=== PATIENT | female | born 1950 | race Caucasian/White ===

== ENCOUNTER 2016-11-20 18:01 | Emergency (ER) | payer OTHER ==
[2016-11-20 21:33] LABS: MANUAL DIFF NEEDED? NO
--- NOTE | 2016-11-20 21:53 | PROVIDER DOCUMENTATION ---
HPI-Musculoskeletal Pain/Inj - GENERAL Chief Complaint: Edema Stated Complaint: BILAT. FEET PAIN/BURNING Time Seen by Provider: 11/20/16 20:15 Source: patient - HX OF PRESENT ILLNESS-MUSKULOSKELTAL Nature of Presenting Problem: This pt presents today c complaints of bilateral feet swelling and pain. She reports that she spoke to her PCP and he advised her to elevate her legs. She states that she did this and it "got a little better" but she decided to come in because it had not completely resolved. She reports that she takes neurontin for her neuropathic pain but it has not improved her symptoms. She denies any any calf pain, erythema or warmth. No other issues or complaints. Quality of Pain: reports: burning Severity in ED: mild Onset/Duration: 3 days ago Timing: still present Modifying Factors: improves with: other (see hpi) Any recent injury?: No Similar Symptoms Previously?: Yes Recently seen or treated by another doctor?: Yes Review of Systems - Adult - REVIEW OF SYSTEMS - ADULT Constitutional: reports: no symptoms reported. denies: chills, fever Eyes: reports: no symptoms reported. denies: discharge, dry eyes Ears, Nose, Mouth & Throat: reports: no symptoms reported. denies: ear discharge, ear pain Cardiovascular: reports: no symptoms reported. denies: chest pain, edema Respiratory: reports: no symptoms reported. denies: chronic cough, cough Gastrointestinal: reports: no symptoms reported. denies: abdominal pain, hematemesis Genitourinary: reports: no symptoms reported. denies: dysuria, discharge Musculoskeletal: reports: see HPI. denies: bone pain, back pain Integumentary: reports: see HPI. denies: hives, hair loss Neurological: reports: no symptoms reported. denies: ataxia, dizziness/vertigo Psychiatric: reports: no symptoms reported. denies: anxiety, anti-depressant use Endocrine: reports: no symptoms reported Hematologic/Lymphatic: reports: no symptoms reported Allergic/Immunologic: reports: no symptoms reported All Other Systems: Reviewed and Negative Past History - Adult - PAST MEDICAL HISTORY-ADULT Review of Records: reports: Old Records Reviewed, Nursing Assessment Review, Medications Reviewed, Social history reviewed & non-contributory. Major Childhood Illnesses: reports: denies history Cardiovascular: reports: [place] Respiratory: reports: sleep apnea Gastrointestinal: reports: denies history Obstetrical/Gynecological: reports: denies history Genitourinary: reports: incontinence Musculoskeletal: reports: arthritis (OA), fibromyalgia Neurological: Psychiatric: reports: bipolar Endocrine/Immune: reports: Diabetes, thyroid disorder Other Conditions: reports: denies history - PRIOR SURGERIES/PROCEDURES Surgical/Procedure History: reports: other (septoplasty. cyst removal. hemorrhoidectomy; pelvic floor repair) - IMMUNIZATION STATUS Childhood Immunizations: UTD Flu Vaccine: See Nurse Assessment - FAMILY HISTORY Family History: reviewed, not pertinent Physical Exam-Injury Related - Physical Exam-Injury Related Initial Vital Signs Reviewed: Yes General Appearance: appears well, alert, no apparent distress Eyes: PERRL/EOMI, pink conjunctivae Head, Ears, Nose, Mouth & Throat: normocephalic/atraumatic, normal ENT inspection, TMs normal, pharynx normal Neck: non-tender, full range of motion, supple, normal inspection Respiratory: chest non-tender, lungs clear, normal breath sounds, no pleuratic chest pain, no respiratory distress, no accessory muscle use Cardiovascular: normal peripheral pulses, regular rate, rhythm, no edema, no gallop, no JVD, no murmur Peripheral Pulses: dorsalis-pedis (R): 2+, dorsalis-pedis (L): 2+ Abdominal Exam: normal bowel sounds, non tender, soft, no organomegaly, no pulsatile mass Lymphatic: no adenopathy Back Exam: normal inspection, no CVA tenderness, no vertebral tenderness Extremity: normal gait, no pedal edema, no calf tenderness, normal capillary refill, pelvis stable, pedal edema, swelling. 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04 Sodium 138 Potassium 4.1 Chloride 100 Carbon Dioxide 24 L Anion Gap 14 BUN 11 Creatinine 0.8 Estimated GFR/1.73 m2 > 60 BUN/Creatinine Ratio 14 Glucose 100 Calculated Osmolality 275 Calcium 9.2 Magnesium 2.0 Total Bilirubin 0.91 AST 35 H ALT 23 Alkaline Phosphatase 90 Total Protein 6.9 Albumin 4.3 Globulin 2.6 Albumin/Globulin Ratio 1.7 Orders Category Date Time Status CBC WITH ELECTRONIC DIFF [HEME] Stat Lab 11/20/16 21:00 Completed COMPREHENSIVE METABOLIC PANEL [CHEM] Stat Lab 11/20/16 21:00 Completed MAGNESIUM [CHEM] Stat Lab 11/20/16 21:00 Completed Furosemide [Lasix] Med 11/20/16 22:23 Once 40 mg PO NOW ONE Vital Signs Temp Pulse Resp BP Pulse Ox 11/20/16 22:05 97 F L 76 20 114/52 99 11/20/16 18:07 98.0 F 91 H 20 147/69 100 clonazepam [From Klonopin] Allergy (Severe, Verified 11/20/16 21:36) SHORTNESS OF BREATH choing, hands swelling ketorolac tromethamine * [From Toradol] Allergy (Severe, Verified 11/20/16 21:36 ) SHORTNESS OF BREATH choking hands swelling amoxicillin Allergy (Intermediate, Verified 11/20/16 21:36) SWELLING "my hands swelled up" aripiprazole [From Abilify] Allergy (Verified 11/20/16 21:36) Unknown RX: Levothyroxine Sodium [Synthroid] 0.05 mg PO DAILY 09/19/12 RX: Lamotrigine [Lamictal] 50 mg PO TID 12/11/13 RX: Gabapentin [Neurontin] 300 mg PO BID 02/09/14 RX: Warfarin [Coumadin] 8 mg PO QHS 02/09/14 RX: Cetirizine [Zyrtec] 10 mg PO DAILY #30 tablet 02/16/15 RX: Albuterol Sulfate [Proair Hfa] 8.5 gm IH Q4HR 02/18/15 RX: Atenolol 25 mg PO BID 02/18/15 RX: Eplerenone 25 mg PO DAILY 02/18/15 RX: Omeprazole [Prilosec] 40 mg PO DAILY 02/18/15 Fluticasone 50 Mcg Nasal [place] [Flonase] 1 spray PAPO DAILY 10/02/16 RX: ATORVAstatin [Lipitor] 20 mg PO QHS #90 tablet 10/02/16 RX: Acetaminophen with Codeine [Tylenol with Codeine #3] 1 each PO Q8H PRN PRN # 30 tablet 10/02/16 Laboratory 11/20/16 11/20/16 21:00 21:00 WBC 8.16 RBC 4.54 Hgb 13.5 Hct 40.5 MCV 89.2 MCH 29.7 MCHC 33.3 RDW Std Deviation 13.0 Plt Count 248 MPV 11.4 H Immature Gran % (Auto) 0.0 Neut % (Auto) 59.4 Lymph % (Auto) 24.5 [place] % (Auto) 12.5 H Eos % (Auto) 3.1 Baso % (Auto) 0.5 Immature Gran # (Auto) 0.00 Neut # (Auto) 4.85 Lymph # (Auto) 2.00 [place] # (Auto) 1.02 H Eos # (Auto) 0.25 Baso # (Auto) 0.04 Sodium 138 Potassium 4.1 Chloride 100 Carbon Dioxide 24 L Anion Gap 14 BUN 11 Creatinine 0.8 Estimated GFR/1.73 m2 > 60 BUN/Creatinine Ratio 14 Glucose 100 Calculated Osmolality 275 Calcium 9.2 Magnesium 2.0 Total Bilirubin 0.91 AST 35 H ALT 23 Alkaline Phosphatase 90 Total Protein 6.9 Albumin 4.3 Globulin 2.6 Albumin/Globulin Ratio 1.7 Pt feeling well. Will d/c home to f/u c her PCP. Departure - Departure Time of Disposition Order: 22:23 DIAGNOSIS: Lower extremity edema Qualifiers: Laterality: bilateral Qualified Code(s): R60.0 - Localized edema Disposition: HOME 01 Certified Medical Emergency: Urgent Condition: Good Additional Instructions: Continue elevating legs throughout the day. Follow up with your primary care provider. ED Follow Up Instructions: You have been treated by a care provider in the Emergency Department. These instructions are being provided to you so you can have an understanding of how to care for yourself upon discharge. Upon discharge from the Emergency Department, you are responsible for making arrangements for follow-up care by a physician of your choice. Take all prescribed medications as directed. Return to the Emergency Department immediately for any new or worsening symptoms. You may call the Physician Referral phone number at [phone] to obtain a list of Physicians who are taking new patients. Referrals: Rosario Frank MD [Primary Care Provider] - Attestation - Physician/ Mid-level Attestation Patient care was provided by Mid-level provider (CLERICAL ASSISTANT/PA):: Yes Mid-level provider:: Gurjit Iqbal Mid-level documentation review:: The Mid-level provider documentation, treatment plan and medical decision making was reviewed by the physician who agrees with all treatment and medical decision making by the MLP.
[2016-11-20 22:00] LABS: AGAP 14; ALBUMIN 4.3 g/dL (3.5-5.0); ALKALINE PHOSPHATASE 90 U/L (32-104); BUN 11 mg/dL (8-22); CALCIUM 9.2 mg/dL (8.8-10.2); CHLORIDE 100 mmol/L (98-107); COSMO 275; GOT 35 U/L (10-30); GPT 23 U/L (10-36); POTASSIUM 4.1 mmol/L (3.5-5.1); SODIUM 138 mmol/L (136-145); TCO2 24 mmol/L (25-35); TOTAL BILIRUBIN 0.91 mg/dL (0.20-1.00); TOTAL PROTEIN 6.9 g/dL (6.3-8.3)
[2016-11-20 22:08] VITALS: BP 114/52
[2016-11-20 22:20] LABS: BASO% 0.5 % (0.0-0.8); EOS# 0.25 X1000 (0.0-0.7); EOS% 3.1 % (0.0-10.0); HEMATOCRIT 40.5 % (37.0-47.0); HEMOGLOBIN 13.5 g/dL (12.0-16.0); LYMPH% 24.5 % (20.5-51.1); MCH 29.7 PG (27-31); MCHC 33.3 g/dL (33-37); MCV 89.2 FL (81-99); MONO# 1.02 X1000 (0.11-0.59); MONO% 12.5 % (1.7-9.3); MPV 11.4 FL (7.4-10.4); NEUT% 59.4 % (42.2-75.2); PLT 248 X1000 (130-400); RBC 4.54 XMIL (4.2-5.4)
[2016-11-20] MEDS ORDERED: LASIX PO ONE (22:23)
== END 2016-11-20 22:50 | disposition home or self-care (01) ==
LOC: ED 18:01
DX: R60.0 Localized edema (principal); M79.672 Pain in left foot; M79.671 Pain in right foot; I25.2 Old myocardial infarction; M19.90 Unspecified osteoarthritis, unspecified site; M79.7 Fibromyalgia; E11.9 Type 2 diabetes mellitus without complications; E07.9 Disorder of thyroid, unspecified; Z79.899 Other long term (current) drug therapy; Z79.01 Long term (current) use of anticoagulants; Z79.51 Long term (current) use of inhaled steroids
CPT/HCPCS: 36415; 80053; 83735; 85025; 99283

== ENCOUNTER 2016-11-24 07:28 | Emergency (ER) ==
[2016-11-24] MEDS ORDERED: ASPIRIN PO STA (07:44)
[2016-11-24 08:07] LABS: MANUAL DIFF NEEDED? NO
[2016-11-24 08:20] LABS: BASO% 0.5 % (0.0-0.8); EOS# 0.16 X1000 (0.0-0.7); EOS% 1.9 % (0.0-10.0); HEMATOCRIT 40.8 % (37.0-47.0); HEMOGLOBIN 13.7 g/dL (12.0-16.0); LYMPH# 1.82 X1000 (1.2-3.4); LYMPH% 21.3 % (20.5-51.1); MCH 30.2 PG (27-31); MCHC 33.6 g/dL (33-37); MCV 89.9 FL (81-99); MONO# 1.02 X1000 (0.11-0.59); MONO% 11.9 % (1.7-9.3); MPV 11.3 FL (7.4-10.4); NEUT% 64.4 % (42.2-75.2); PLT 263 X1000 (130-400); RBC 4.54 XMIL (4.2-5.4)
[2016-11-24 08:37] LABS: AGAP 16; ALBUMIN 4.2 g/dL (3.5-5.0); ALKALINE PHOSPHATASE 91 U/L (32-104); BUN 9 mg/dL (8-22); CALCIUM 9.1 mg/dL (8.8-10.2); CHLORIDE 93 mmol/L (98-107); COSMO 265; GOT 39 U/L (10-30); GPT 25 U/L (10-36); MAGNESIUM 1.9 mg/dL (1.5-2.7); POTASSIUM 3.7 mmol/L (3.5-5.1); SODIUM 133 mmol/L (136-145); TCO2 24 mmol/L (25-35); TOTAL BILIRUBIN 1.12 mg/dL (0.20-1.00)
[2016-11-24 08:44] LABS: CK PROFILE 734 U/L (24-173)
[2016-11-24 08:53] LABS: INR 3.75; PROTIME 40.3 Seconds (9.2-11.7); PTT 42.9 Seconds (22.0-36.0)
--- NOTE | 2016-11-24 08:55 | ED EKG INTERP ---
EKG Interpretation - EKG Time of EKG reading by physician:: 08:07 EKG Read and Signed by:: Dwight Oconnor EKG Interpretation (*Must complete 3 of following elements*): Normal Rate: 92 Rhythm: nsr [place]: normal QRS: normal [place] Interval: normal Attestation - Scribe Verification/Attestation Scribe:: Analy Villa Acting as Scribe for:: Dwight Oconnor Scribe documention review:: This chart was documented by a scribe and accurately reflects the service the provider performed and the decisions made by the provider.
[2016-11-24 08:57] LABS: CK-MB 14.89 ng/mL (0.0-5.0)
--- NOTE | 2016-11-24 09:09 | EKG Report ---
Test Performed on : 11/24/2016 08:07:03 AM Test Reason : CP Blood Pressure : / mmHG Vent. Rate : 092 BPM Atrial Rate : 092 BPM P-R Int : 148 ms QRS Dur : 086 ms QT Int : 374 ms P-R-T Axes : 063 044 040 degrees QTc Int : 462 ms Normal sinus rhythm. Normal ECG When compared with ECG of 22-NOV-2016 11:54, (Unconfirmed) No significant change was found Unconfirmed Result
--- NOTE | 2016-11-24 09:14 | Diag Imaging Result Document ---
PROCEDURE NAME: CHEST-2 VIEWS - 11/24/2016 TWO VIEWS OF THE CHEST: FINDINGS: There is no evidence of acute cardiac or pulmonary disease. The appearance of the chest has not changed appreciably since 09/30/2016. IMPRESSION: Stable chest.
--- NOTE | 2016-11-24 09:23 | PROVIDER DOCUMENTATION ---
HPI-Chest Pain <Dwight Oconnor - Last Filed: 11/24/16 11:00> - General Source: patient, EMS - History of Present Illness-CP Location: reports: other (left chest) Chest Pain Radiation: reports: neck Quality of Pain: reports: pressure, other (squeezing) Severity in ED: moderate Onset/Duration: this morning Timing: still present Nitro Today/Relief: no nitro taken today Similar Symptoms Previously?: Yes Recently Seen Here or By Another Healthcare Provider: Yes <Analy Villa - Last Filed: 11/24/16 12:12> - General Chief Complaint: Anxiety Stated Complaint: CP Time Seen by Provider: 11/24/16 07:43 Allergies/Adverse Reactions: Patient Allergies Allergy/AdvReac Type Severity Reaction Status Date / Time clonazepam [From Klonopin] Allergy Severe SHORTNESS Verified 11/22/16 12:40 OF BREATH ketorolac tromethamine * Allergy Severe SHORTNESS Verified 11/22/16 12:40 [From Toradol] OF BREATH amoxicillin Allergy Intermediate SWELLING Verified 11/22/16 12:40 aripiprazole [From Abilify] Allergy Unknown Verified 11/22/16 12:40 Home Medications: Levothyroxine Sodium [Synthroid] 0.05 mg PO DAILY 09/19/12 Lamotrigine [Lamictal] 50 mg PO TID 12/11/13 Gabapentin [Neurontin] 300 mg PO BID 02/09/14 Warfarin [Coumadin] 8 mg PO QHS 02/09/14 Albuterol Sulfate [Proair Hfa] 8.5 gm IH Q4HR 02/18/15 Atenolol 25 mg PO BID 02/18/15 Eplerenone 25 mg PO DAILY 02/18/15 Omeprazole [Prilosec] 40 mg PO DAILY 02/18/15 Fluticasone 50 Mcg Nasal [place] [Flonase] 1 spray PAPO DAILY 10/02/16 Aspirin [Aspirin EC] 81 mg PO DAILY 11/24/16 Taurine [Kenan Taurine] 1,000 mg PO DAILY 11/24/16 Ubidecarenone [Co Q-10] 100 mg PO DAILY 11/24/16 - History of Present Illness-CP Nature of Presenting Problem: Presents to er with cc of left sided chest pain pressure squeezing like radiating into left neck. Reports hx of tia,mi,and severe anxiety. Reports have been off her xanax because she was having trouble concentrating. Reports pain upon inspiration and movement of left arm. (Analy Villa) Review of Systems - Adult - REVIEW OF SYSTEMS - ADULT Constitutional: denies: chills, fever, fatique Eyes: reports: no symptoms reported Ears, Nose, Mouth & Throat: reports: no symptoms reported Cardiovascular: reports: chest pain. denies: irregular heart rate, orthopnea, syncope Respiratory: reports: no symptoms reported Gastrointestinal: reports: no symptoms reported Genitourinary: reports: no symptoms reported Musculoskeletal: reports: no symptoms reported Integumentary: reports: no symptoms reported Neurological: reports: no symptoms reported Psychiatric: reports: anxiety. denies: insomnia, panic attacks Endocrine: reports: no symptoms reported Hematologic/Lymphatic: reports: no symptoms reported Allergic/Immunologic: reports: no symptoms reported All Other Systems: Reviewed and Negative <Analy Villa - Last Filed: 11/24/16 12:12> Past History - Adult - PAST MEDICAL HISTORY-ADULT Review of Records: reports: Nursing Assessment Review, Medications Reviewed Major Childhood Illnesses: reports: denies history Cardiovascular: reports: [place] Respiratory: reports: sleep apnea Gastrointestinal: reports: denies history, GERD Obstetrical/Gynecological: reports: denies history Genitourinary: reports: incontinence Musculoskeletal: reports: arthritis (OA), fibromyalgia Neurological: reports: TIA Psychiatric: reports: bipolar Endocrine/Immune: reports: Diabetes, thyroid disorder Other Conditions: reports: denies history - PRIOR SURGERIES/PROCEDURES Surgical/Procedure History: reports: other (septoplasty. cyst removal. hemorrhoidectomy; pelvic floor repair) - IMMUNIZATION STATUS Childhood Immunizations: UTD Flu Vaccine: See Nurse Assessment - FAMILY HISTORY Family History: reviewed, not pertinent <Analy Villa - Last Filed: 11/24/16 12:12> Physical Exam-General - PHYSICAL EXAM-ADULT Initial Vital Signs Reviewed: Yes - CONSTITUTIONAL General Appearance: appears well, alert, anxious - EYES Eyes: PERRL/EOMI, pink conjunctivae - HEAD, EARS, NOSE, MOUTH & THROAT HENMT: normocephalic/atraumatic, moist mucous membranes, normal ENT inspection - NECK Neck: non-tender, full range of motion, supple, normal inspection - RESPIRATORY Respiratory: chest non-tender, lungs clear, normal breath sounds, no pleuratic chest pain, no respiratory distress, no accessory muscle use - CARDIOVASCULAR Cardiovascular: normal peripheral pulses, regular rate, rhythm, no edema, no gallop, no JVD, no murmur - GASTROINTESTINAL (ABDOMEN) Abdominal Exam: normal bowel sounds, non tender, soft, no organomegaly, no pulsatile mass - LYMPHATIC Lymphatic: no adenopathy - MUSCULOSKELETAL Back Exam: normal inspection, no CVA tenderness, no vertebral tenderness Extremity: normal range of motion, non-tender, normal gait, normal inspection, pedal edema (ble edema 1) - SKIN Integumentary: normal color, normal turgor, warm/dry - NEUROLOGIC Neurologic: grossly normal, no motor/sensory deficits - PSYCHIATRIC Psych/Mental Status: normal thought content, normal thought process, oriented x 3, anxious <Analy Villa - Last Filed: 11/24/16 12:12> Progress - REASSESSMENT Reassessment #1 Time Reassessed: 11:00 (NO ACUTE CARDIAC CP NOW /STILL FEELING ANXIOUS) Status: improving - CONSULTS/PCP/HOSPITALIST Notification #1 *Consult/PCP/Hospitalist*: DR LOU Time Discussed: 11:01 Reason/Comments: AWARE OF Case and recomended 2 nd set ce .then to dc hme w- cardiolog f/u <Dwight Oconnor - Last Filed: 11/24/16 11:00> - EKG 1 Time of EKG reading by physician:: 11:16 EKG Read and Signed by:: Dwight Oconnor EKG Interpretation (*Must complete 3 of following elements*): Normal Rate: 93 Rhythm: nsr [place]: normal QRS: normal [place] Interval: normal ST Wave: normal - XRAY 1 XRAY: Bilateral XRAY Study: Chest Impression: Normal XRAY Interpretation: nad - CONSULTS/PCP/HOSPITALIST Notification #1 *Consult/PCP/Hospitalist*: Time Discussed: 12:03 (Do not admit if second set of Enzymes are negative) <Analy Villa - Last Filed: 11/24/16 12:12> - PLAN OF CARE/RESULTS Progress/Plan/Lab Results: Orders Category Date Time Status Cardiac Monitoring DIRECTED Care 11/24/16 07:44 Active Saline Loc NOW Care 11/24/16 07:44 Active CHEST-2 VIEWS [RAD] Stat Exams 11/24/16 07:44 Draft CBC WITH ELECTRONIC DIFF [HEME] Stat Lab 11/24/16 07:52 Completed CK PROFILE [SP CHEM] Stat Lab 11/24/16 07:52 Completed COMPREHENSIVE METABOLIC PANEL [CHEM] Stat Lab 11/24/16 07:52 Completed D-DIMER [CHEM] Stat Lab 11/24/16 07:52 Received MAGNESIUM [CHEM] Stat Lab 11/24/16 07:52 Completed PRO B-NATRIURETIC PEPTIDE Stat Lab 11/24/16 07:52 Completed PROTIME WITH INR [COAG] Stat Lab 11/24/16 07:52 Completed PTT [COAG] Stat Lab 11/24/16 07:52 Completed TROPONIN T Stat Lab 11/24/16 07:52 Completed Aspirin Med 11/24/16 07:44 Discontinued 325 mg PO STAT STA EKG [EKG] Stat Ther 11/24/16 07:44 Draft Vital Signs - 24 hr 11/24/16 11/24/16 07:29 09:01 Temperature 98.1 F Pulse Rate 93 H 100 H Respiratory 26 H 18 Rate Blood Pressure 123/68 118/71 O2 Sat by Pulse 96 97 Oximetry Laboratory Tests 11/24/16 11/24/16 11/24/16 07:52 07:52 07:52 WBC 8.54 RBC 4.54 Hgb 13.7 Hct 40.8 MCV 89.9 MCH 30.2 MCHC 33.6 RDW Std Deviation 13.1 Plt Count 263 MPV 11.3 H Immature Gran % (Auto) 0.0 Neut % (Auto) 64.4 Lymph % (Auto) 21.3 [place] % (Auto) 11.9 H Eos % (Auto) 1.9 Baso % (Auto) 0.5 Immature Gran # (Auto) 0.00 Neut # (Auto) 5.50 Lymph # (Auto) 1.82 [place] # (Auto) 1.02 H Eos # (Auto) 0.16 Baso # (Auto) 0.04 PT INR PTT (Actin FS) Sodium 133 L Potassium 3.7 D Chloride 93 L Carbon Dioxide 24 L Anion Gap 16 BUN 9 Creatinine 0.7 Estimated GFR/1.73 m2 > 60 BUN/Creatinine Ratio 13 Glucose 96 Calculated Osmolality 265 Calcium 9.1 Magnesium 1.9 Total Bilirubin 1.12 H AST 39 H ALT 25 Alkaline Phosphatase 91 Creatine Kinase 734 H Creatine Kinase Index 2.0 CK-MB (CK-2) 14.89 H Troponin T Fqx-F-Apneqdyrsdm Pept 186 Total Protein 7.0 Albumin 4.2 Globulin 2.8 Albumin/Globulin Ratio 1.5 11/24/16 11/24/16 07:52 07:52 WBC RBC Hgb Hct MCV MCH MCHC RDW Std Deviation Plt Count MPV Immature Gran % (Auto) Neut % (Auto) Lymph % (Auto) [place] % (Auto) Eos % (Auto) Baso % (Auto) Immature Gran # (Auto) Neut # (Auto) Lymph # (Auto) [place] # (Auto) Eos # (Auto) Baso # (Auto) PT 40.3 H INR 3.75 PTT (Actin FS) 42.9 H Sodium Potassium Chloride Carbon Dioxide Anion Gap BUN Creatinine Estimated GFR/1.73 m2 BUN/Creatinine Ratio Glucose Calculated Osmolality Calcium Magnesium Total Bilirubin AST ALT Alkaline Phosphatase Creatine Kinase Creatine Kinase Index CK-MB (CK-2) Troponin T < 0.010 Vni-V-Uzdfkrdlfjv Pept Total Protein Albumin Globulin Albumin/Globulin Ratio Laboratory Tests 11/24/16 11/24/16 11/24/16 07:52 07:52 07:52 WBC 8.54 RBC 4.54 Hgb 13.7 Hct 40.8 MCV 89.9 MCH 30.2 MCHC 33.6 RDW Std Deviation 13.1 Plt Count 263 MPV 11.3 H Immature Gran % (Auto) 0.0 Neut % (Auto) 64.4 Lymph % (Auto) 21.3 [place] % (Auto) 11.9 H Eos % (Auto) 1.9 Baso % (Auto) 0.5 Immature Gran # (Auto) 0.00 Neut # (Auto) 5.50 Lymph # (Auto) 1.82 [place] # (Auto) 1.02 H Eos # (Auto) 0.16 Baso # (Auto) 0.04 PT INR PTT (Actin FS) D-Dimer 0.30 Sodium 133 L Potassium 3.7 D Chloride 93 L Carbon Dioxide 24 L Anion Gap 16 BUN 9 Creatinine 0.7 Estimated GFR/1.73 m2 > 60 BUN/Creatinine Ratio 13 Glucose 96 Calculated Osmolality 265 Calcium 9.1 Magnesium 1.9 Total Bilirubin 1.12 H AST 39 H ALT 25 Alkaline Phosphatase 91 Creatine Kinase 734 H Creatine Kinase Index 2.0 CK-MB (CK-2) 14.89 H Troponin T Ugf-F-Esfwrnvyjux Pept Total Protein 7.0 Albumin 4.2 Globulin 2.8 Albumin/Globulin Ratio 1.5 11/24/16 11/24/16 11/24/16 07:52 07:52 07:52 WBC RBC Hgb Hct MCV MCH MCHC RDW Std Deviation Plt Count MPV Immature Gran % (Auto) Neut % (Auto) Lymph % (Auto) [place] % (Auto) Eos % (Auto) Baso % (Auto) Immature Gran # (Auto) Neut # (Auto) Lymph # (Auto) [place] # (Auto) Eos # (Auto) Baso # (Auto) PT 40.3 H INR 3.75 PTT (Actin FS) 42.9 H D-Dimer Sodium Potassium Chloride Carbon Dioxide Anion Gap BUN Creatinine Estimated GFR/1.73 m2 BUN/Creatinine Ratio Glucose Calculated Osmolality Calcium Magnesium Total Bilirubin AST ALT Alkaline Phosphatase Creatine Kinase Creatine Kinase Index CK-MB (CK-2) Troponin T < 0.010 Wpk-B-Qjtgqcrbgcy Pept 186 Total Protein Albumin Globulin Albumin/Globulin Ratio 1019 Hospitalist paiged (Analy Villa) Departure <Dwight Oconnor - Last Filed: 11/24/16 11:00> - Departure Time of Disposition Order: 10:18 Certified Medical Emergency: Emergent <Analy Villa - Last Filed: 11/24/16 12:12> - Departure DIAGNOSIS: Atypical chest pain, Abnormal laboratory test result Disposition: HOME 01 Condition: Stable Additional Instructions: Follow up with ED Follow Up Instructions: You have been treated by a care provider in the Emergency Department. These instructions are being provided to you so you can have an understanding of how to care for yourself upon discharge. Upon discharge from the Emergency Department, you are responsible for making arrangements for follow-up care by a physician of your choice. Take all prescribed medications as directed. Return to the Emergency Department immediately for any new or worsening symptoms. You may call the Physician Referral phone number at [phone] to obtain a list of Physicians who are taking new patients. Prescriptions: Alprazolam [Xanax] 0.5 mg PO BID #14 tablet Referrals: None,PCP [Primary Care Provider] - Attestation - Scribe Verification/Attestation Scribe:: Analy Villa Acting as Scribe for:: Dwight Oconnor Scribe documention review:: This chart was documented by a scribe and accurately reflects the service the provider performed and the decisions made by the provider. <Analy Villa - Last Filed: 11/24/16 12:12> Physician Attestation
[2016-11-24] MEDS ORDERED: XANAX PO ONE (09:31)
[2016-11-24] MEDS ORDERED: ASPIRIN PO ONE (09:31)
[2016-11-24] MEDS ORDERED: POLYSPORIN OINTMENT TOP ONE (11:41)
[2016-11-24 12:54] VITALS: BP 133/82
--- NOTE | 2016-11-24 13:09 | EKG Report ---
Test Performed on : 11/24/2016 11:16:08 AM Test Reason : CP Blood Pressure : / mmHG Vent. Rate : 093 BPM Atrial Rate : 093 BPM P-R Int : 142 ms QRS Dur : 088 ms QT Int : 374 ms P-R-T Axes : 062 040 036 degrees QTc Int : 465 ms Normal sinus rhythm. Normal ECG When compared with ECG of 24-NOV-2016 08:07, (Unconfirmed) No significant change was found Unconfirmed Result
== END 2016-11-24 13:10 | disposition home or self-care (01) ==
LOC: EDBD → ED 07:28
DX: R07.89 Other chest pain (principal); Z00.01 Encounter for general adult medical examination with abnormal findings; M54.2 Cervicalgia; Z79.899 Other long term (current) drug therapy; I25.2 Old myocardial infarction; K21.9 Gastro-esophageal reflux disease without esophagitis; M19.90 Unspecified osteoarthritis, unspecified site; M79.7 Fibromyalgia; Z86.73 Personal history of transient ischemic attack (TIA), and cerebral infarction without residual deficits; E11.9 Type 2 diabetes mellitus without complications; E07.9 Disorder of thyroid, unspecified; R60.9 Edema, unspecified; F31.9 Bipolar disorder, unspecified; Z79.01 Long term (current) use of anticoagulants; Z79.82 Long term (current) use of aspirin
CPT/HCPCS: 71020; 80053; 82550; 82553; 83735; 83880; 84484; 85025; 85379; 85610; 85730; 93005; 99283